=== PATIENT | male | born 1975 | race Caucasian/White ===

== ENCOUNTER 2018-04-29 15:41 | Emergency (ER) | payer OTHER ==
[~2018-04-29] VITALS: Ht 182.9 cm; Wt 79.5 kg
[2018-04-29 15:43] VITALS: TEMP 36.7; Ht 182.9 cm; Wt 79.5 kg
--- NOTE | 2018-04-29 16:23 | DIAGNOSTIC IMAGING REPORT ---
RIGHT SHOULDER 3 VIEWS CLINICAL HISTORY: Right shoulder pain. FINDINGS: 3 views of the right shoulder are obtained. No prior studies are available for comparison at the time of dictation. The skeletal structures are well mineralized. No fracture or dislocation is identified. The glenohumeral and acromioclavicular joints are preserved. The overlying soft tissues are within normal limits. The imaged right lung parenchyma appears clear. IMPRESSION: No acute bony abnormality is seen in the right shoulder. Electronically signed by: Timo Ramirez M.D. 04/29/2018 4:22 PM Dictated Date/Time: 04/29/2018 4:21 PM
[2018-04-29 17:14] VITALS: BP 133/71; PULSE 77; O2SAT 99
--- NOTE | 2018-04-29 19:05 | EMERGENCY ROOM VISIT NOTE ---
History First contact with patient: 15:45 Chief Complaint: SHOULDER PAIN Stated Complaint: RIGHT SHOULDER INJURTY History of Present Illness The patient is a 42 year old male who presents to the Emergency Room with complaints of right shoulder pain after injuring his shoulder today playing softball. The patient reports that he fell onto the right shoulder. Range of motion worsens his pain. He denies any pain extending into the neck or chest. He also denies any pain radiating into the upper arm or elbow region. The patient is right-hand dominant, and rates his discomfort a 2 out of 10. Review of Systems 10 system review was performed and was negative except for pertinent positives and negatives as indicated in history of present illness Past Medical/Surgical History Medical Problems: (1) GERD (gastroesophageal reflux disease) (2) Hiatal hernia Surgical Problems: (1) History of ORIF right elbow fracture (2) History of reconstruction of anterior cruciate ligament tear Family History FH: cancer Social History Smoking Status: Never Smoker Alcohol Use: occasionally Marital Status: Housing Status: lives with family Occupation Status: employed Current/Historical Medications No Active Prescriptions or Reported Meds Physical Exam Vital Signs Date Time Temp Pulse Resp B/P (MAP) Pulse Ox O2 Delivery O2 Flow Rate FiO2 04/29/18 17:14 77 18 133/71 99 04/29/18 15:43 36.7 76 20 139/91 98 Room Air Physical Exam CONSTITUTIONAL: Healthy and well nourished. Alert and oriented X 3 with positive affect. Patient appears in mild discomfort. HEENT: Normocephalic, atraumatic. Pupils equal, round and reactive. NECK: Full active range of motion without discomfort. RESPIRATORY: Clear to auscultation bilaterally with no wheezing, crackles, rhonchi or stridor. The breathing does not cause any discomfort. CARDIOVASCULAR: Regular rate and rhythm with no murmurs, rubs or gallops. GASTROINTESTINAL: Bowel sounds present in all quadrants. Soft and nontender to palpation. MUSCULOSKELETAL: Examination of the right shoulder does not show any obvious deformities, open wounds or abrasions. The patient is tender over the acromioclavicular joint and anterior shoulder. He has generalized discomfort with passive range of motion. No tenderness to palpation to the triceps or biceps musculature. Distal pulses are intact. INTEGUMENTARY: No rash or other significant dermatologic conditions noted. NEUROLOGIC: Right deltoid and right hand sensations are intact. Medical Decision & Procedures ER Provider Diagnostic Interpretation: My interpretation of right shoulder x-rays does not show any, dislocation or acromial clavicular separation. Radiologist report is as follows: RIGHT SHOULDER 3 VIEWS CLINICAL HISTORY: Right shoulder pain. FINDINGS: 3 views of the right shoulder are obtained. No prior studies are available for comparison at the time of dictation. The skeletal structures are well mineralized. No fracture or dislocation is identified. The glenohumeral and acromioclavicular joints are preserved. The overlying soft tissues are within normal limits. The imaged right lung parenchyma appears clear. IMPRESSION: No acute bony abnormality is seen in the right shoulder. ED Course Patient history and physical exam were performed. Nurse's notes were reviewed. Vital signs were reviewed, showing an elevated blood pressure of 139/91. The patient refused any analgesics on initial exam. X-rays of the right shoulder were normal. The patient was encouraged to intermittently apply ice to the shoulder. He was encouraged to perform range of motion exercises to prevent stiffness. Ibuprofen and Tylenol as needed for pain. The patient's works at [employer], and she will schedule an appointment for him for recheck. The patient voiced understanding of all discharge instructions, and denied any significant discomfort at the conclusion of my exam. Medical Decision Although x-rays do not show any obvious bony injury, I did explain the risk for other soft tissue injury such as rotator cuff tear, bursitis, musculotendinous injury and axillary plexitis. X-rays do not show any evidence for fracture or dislocation. The patient does have focal tenderness as well over the acromioclavicular joint, however no evidence for separation on x-ray. Medication Reconcilliation Current Medication List: was personally reviewed by me Blood Pressure Screening Patient's blood pressure: Elevated blood pressure Blood pressure disposition: Elevated BP felt to be situational, Did not require urgent referral Impression Primary Impression: Contusion of right shoulder Departure Information Prescriptions No Active Prescriptions or Reported Meds Referrals Dari Granda D.O. (PCP) Patient Instructions My [facility] Health Problem Qualifiers Primary Impression: Contusion of right shoulder Encounter type: initial encounter Qualified Codes: S40.011A - Contusion of right shoulder, initial encounter
== END 2018-04-29 17:15 | disposition home or self-care (01) ==
LOC: C.EDB 15:42 → C.EDD 17:15
DX: S40.011A Contusion of right shoulder, initial encounter (principal); W18.30XA Fall on same level, unspecified, initial encounter; Y93.64 Activity, baseball